=== PATIENT | female | born 1945 | race Caucasian/White ===

== ENCOUNTER → 2019-06-09 | Outpatient (CLI) | payer OTHER ==
[2019-06-09 20:32] LABS: Adenovirus F 40/41 Not Detected (NOT DETECT); Astrovirus Not Detected (NOT DETECT); Campylobacter Sp Not Detected (NOT DETECT); Cryptosporidium Not Detected (NOT DETECT); Cyclospora Cayetanensis Not Detected (NOT DETECT); E. Coli O157 Not Detected (NOT DETECT); Entamoeba Histolytica Not Detected (NOT DETECT); Enteroaggregative E. coli-EAEC Not Detected (NOT DETECT); Enteropathogenic E. coli-EPEC Not Detected (NOT DETECT); Enterotoxigenic E. coli-ETEC Not Detected (NOT DETECT); Giardia Lamblia Not Detected (NOT DETECT); Norovirus GI/GII Not Detected (NOT DETECT); Plesiomonas Shigelloides Not Detected (NOT DETECT); Rotavirus A Not Detected (NOT DETECT); Salmonella Sp Not Detected (NOT DETECT); Sapovirus Not Detected (NOT DETECT); Shiga Toxin-prod E. coli-STEC Not Detected (NOT DETECT); Shigella/Enteroin E. coli-EIEC Not Detected (NOT DETECT); Vibrio Cholerae Not Detected (NOT DETECT); Vibrio Sp Not Detected (NOT DETECT); Yersinia Enterocolitica Not Detected (NOT DETECT)
== END | disposition home or self-care (01) ==
LOC: LAB SHORT 15:14 → LAB 15:14
PROVIDERS: Family Medicine
DX: A09 Infectious gastroenteritis and colitis, unspecified (principal)
CPT/HCPCS: 0097U

== ENCOUNTER 2019-07-23 10:26 | Day surgery (SDC) | payer OTHER ==
[~2019-07-23] VITALS: Ht 162.6 cm; Wt 61.8 kg
[~2019-07-23 10:26] MED LIST: ANASTROZOLE PO; DYAZIDE 37.5-21 EACH; EUTHYROX88 MCG; FAMO20; Sudogest60 MG; ZYRTEC10 M2
== END 2019-07-23 12:50 | disposition home or self-care (01) ==
LOC: ORSCSDS 10:26
PROVIDERS: Surgery
PROC: 0DB68ZX Excision of Stomach, Via Natural or Artificial Opening Endoscopic, Diagnostic (ICD-10-PCS; principal; 2019-07-23 11:45)
PROC: 0DB48ZX Excision of Esophagogastric Junction, Via Natural or Artificial Opening Endoscopic, Diagnostic (ICD-10-PCS; principal; 2019-07-23 11:45)
DX: K44.9 Diaphragmatic hernia without obstruction or gangrene (principal); K22.70 Barrett's esophagus without dysplasia; R10.13 Epigastric pain; K29.70 Gastritis, unspecified, without bleeding; K80.20 Calculus of gallbladder without cholecystitis without obstruction; I10 Essential (primary) hypertension; E03.9 Hypothyroidism, unspecified; K21.9 Gastro-esophageal reflux disease without esophagitis; Z79.899 Other long term (current) drug therapy
CPT/HCPCS: J2704; J7120

== ENCOUNTER 2019-08-19 06:04 | Day surgery (SDC) | payer OTHER ==
[~2019-08-19] VITALS: Ht 162.6 cm; Wt 61.8 kg
[~2019-08-19 06:04] MED LIST changes: +ACET325 PO; +ANASTRAZOLE PO; -ANASTROZOLE PO; +ASCO500 PO; +CALCITRATE200 M1 PO; -DYAZIDE 37.5-21 EACH; +DYAZIDE 37.5-21 EACH PO; -EUTHYROX88 MCG; +EUTHYROX88 MCG PO; +FISH OIL 1,001000 M1 PO; +IBUP200 PO; +OMEP20ER PO; +Pepcid20 MG PO; -Sudogest60 MG; +Sudogest60 MG PO; +VITAMIN B125000 MC1 PO; +VITAMIN D350 MC2 PO; -ZYRTEC10 M2; +ZYRTEC10 M2 PO
--- NOTE | 2019-08-19 07:03 | NUR ---
History, Chart, Medications and Allergies reviewed before start of procedure. Lungs clear T/O to Auscultation. Patient confirms NPO status and agrees with scheduled surgery. Pre-Op teaching done. Pt verbalizes understanding. Patient reports completing Chlorhexadine shower X2 prior to admission to hospital.
--- NOTE | 2019-08-19 12:05 | NUR ---
pt arrived to room via stretcher following receiving report form ESTABLISHMENT GUIDE. pt a/o x4, pleasant/cooperative, slightly drowsy but answers questions appropriately. Post op vs commenced and stable. pt to remain strict NPO until 1700 this evening per MD orders. pt's in room. pt oriented to room, provided with IS and education for it's use/purpose.
--- NOTE | 2019-08-19 14:19 | NUR ---
ASSUMED CARE OF PATIENT. PT LYING IN RECLINER WITH EYES CLOSED. RESPIRATIONS EVEN AND UNLABORED
--- NOTE | 2019-08-19 18:06 | NUR ---
summary PT SUZE SIPS OF CLEAR LIQUIDS WITHOUT NAUSEA. PT REPORTS SHARP PAINS TO LEFT SHOULDER BLADE AND EPIGASTRIC AREA WHICH IS CONTROLLED TO TOLERABLE LEVEL WITH IV FENTANYL, PT AMBULATED WITH STANDBY ASSIST
--- NOTE | 2019-08-20 05:24 | NUR ---
SHIFT SUMMARY POD 1 LAP JACOBO AND HIATAL HERNIA REPAIR WITH ZOHREH FUNDOPLICATION [id number], VSS. PT REPORTS GAS PAIN PRESENT AND SOME ABDOMINAL PAIN. MEDICATED PER EMAR. PT REPORTS PAIN IMPROVING T/O SHIFT. TOLERATING PO WELL. REPORTS PASSING GAS. MEDICATED FOR NAUSEA X1. PT USING CALL LIGHT APPROPRIATLY. PT UP AND AMBULATING, VOIDING IN RESTROOM. PLAN TO ADVANCE TO FULL LIQUID THIS AM.
--- NOTE | 2019-08-20 08:05 | NUR ---
OOB TO CHAIR, TOLERATED WELL, PT HAVING FULL LIQUID BREAKFAST, DENIES ANY NAUSEA AT THIS TIME OR ANY NEED FOR PAIN MEDS AT THIS TIME, STATES TYLENOL HAS BEEN WORKING WELL FOR THE PAIN, CONT. TO MONITOR FOR ANY CHANGES, DC HOME ORDERED IF TOLERATED DIET WELL.
[2019-08-20] MEDS ORDERED: HYDR1TAB94 PO (08:51)
[2019-08-20] MEDS ORDERED: ONDA4ODT PO (08:52)
--- NOTE | 2019-08-20 11:10 | NUR ---
PT REPORTS TOLERATED FULL LIQUIDS WELL, WANTED TO GO HOME THIS AM, MEDICATED FOR PAIN AND NAUSEA X1, DC INSTRUCTIONS GIVEN TO PT AND , VERBALIZED UNDERSTANDING, PT DC'D HOME, IV DC'D, CATH INTACT.
== END 2019-08-20 11:14 | disposition home or self-care (01) ==
LOC: ORSCMMR 06:04 → ORD 07:30 → ORSCMMR 07:30 → SURS 11:53 → ORSCMMR 08-20 11:14
PROVIDERS: Surgery
PROC: 0FT44ZZ Resection of Gallbladder, Percutaneous Endoscopic Approach (ICD-10-PCS; principal; 2019-08-19 07:30)
PROC: 0DV44ZZ Restriction of Esophagogastric Junction, Percutaneous Endoscopic Approach (ICD-10-PCS; principal; 2019-08-19 07:30)
DX: K44.9 Diaphragmatic hernia without obstruction or gangrene (principal); K80.20 Calculus of gallbladder without cholecystitis without obstruction; K21.9 Gastro-esophageal reflux disease without esophagitis; Z01.812 Encounter for preprocedural laboratory examination; I10 Essential (primary) hypertension; E03.9 Hypothyroidism, unspecified; Z79.899 Other long term (current) drug therapy
CPT/HCPCS: 36415; 86850; 86900; 86901; 88304; A9270-GY; J0171; J0690; J1100; J1644; J2250; J2370; J2405; J2704; J2765; J3010; J7120

== ENCOUNTER 2021-03-29 09:24 | Emergency (ER) | payer MEDICARE, BC ==
[~2021-03-29] VITALS: Ht 162.6 cm; Wt 59.0 kg
[~2021-03-29 09:24] MED LIST changes: +HYDR1TAB94 PO; +ONDA4ODT PO
[2021-03-29 09:54] LABS: BASOPHILS ABSOLUTE AUTO 0.05 K/mm3 (0.00-0.23); BASOPHILS PERCENT AUTO 1 % (0-2); EOSINOPHILS ABSOLUTE AUTO 0.42 K/mm3 (0.00-0.68); EOSINOPHILS PERCENT AUTO 6 % (0-6); Hematocrit 41.6 % (33.0-51.0); Hemoglobin 14.1 g/dL (11.5-16.0); IMMATURE GRAN ABSOLUTE AUTO 0.01 K/mm3 (0.00-0.10); IMMATURE GRAN PERCENT AUTO 0 % (0-1); LYMPHOCYTES ABSOLUTE AUTO 2.02 K/mm3 (0.84-5.20); LYMPHOCYTES PERCENT AUTO 31 % (21-46); MONOCYTES ABSOLUTE AUTO 0.71 K/mm3 (0.16-1.47); MONOCYTES PERCENT AUTO 11 % (4-13); Mean Corpuscular HGB 30.3 pg (26.0-34.0); Mean Corpuscular HGB Conc 33.9 g/dL (31.5-36.5); Mean Corpuscular Volume 90 fL (80-100); Mean Platelet Volume 9.5 fL (9.1-12.4); NEUTROPHILS ABSOLUTE AUTO 3.37 K/mm3 (1.96-9.15); NEUTROPHILS PERCENT AUTO 51 % (41-73); Platelet Count 274 K/mm3 (150-400); RDW Coefficient Variation 13.1 % (11.7-14.2); RDW Standard Deviation 42.5 fL (35.1-46.3); Red Blood Cell Count 4.65 M/mm3 (3.80-5.20); White Blood Cell Count 6.58 K/mm3 (4.00-11.30)
[2021-03-29 10:23] LABS: Alanine Aminotransfer (ALT/SGP 31 U/L (12-78); Albumin, Blood 3.7 g/dL (3.4-5.0); Alk Phos 74 U/L (50-136); Anion Gap 6 mmol/L (6-16); Aspartate Aminotrans (AST/SGOT 22 U/L (12-37); Bilirubin, Total 0.5 mg/dL (0.1-1.0); Blood Urea Nitrogen 20 mg/dL (8-24); Bun/Creatinine Ratio 24.4 (12.0-20.0); CO2, Blood 25 mmol/L (21-32); Calcium, Blood 9.5 mg/dL (8.5-10.1); Chloride, Blood 107 mmol/L (98-108); Creatinine, Blood 0.82 mg/dL (0.40-1.00); Globulin, Blood 3.7 g/dL (2.2-4.0); Glomerular Filtration Rate >60 (60-); Glucose, Blood 129 mg/dL (70-99); Potassium, Blood 3.6 mmol/L (3.5-5.5); Sodium, Blood 138 mmol/L (136-145); Total Protein, Blood 7.4 g/dL (6.4-8.2); Troponin I <0.015 ng/mL (0.000-0.040)
[2021-03-29] MEDS ORDERED: SYNTHROID125 MC1 PO (10:41)
[2021-03-29] MEDS ORDERED: NORCO 7.5-3251 EAC1 PO (10:42)
[2021-03-29 10:43] LABS: Source, Urine Clean Catch
[2021-03-29 11:00] LABS: Appearance, Urine Clear (Clear); Bilirubin, Urine Neg (Neg); Blood, Urine 1+ (Neg); Color, Urine Yellow (P-Yellow); Glucose Qualitative, Urine Neg (Neg); Ketones, Urine Neg (Neg); Leukocyte Esterase, Urine 1+ (Neg); Nitrite, Urine Neg (Neg); Protein, Urine Neg (Neg); Urobilinogen, Urine NORM (Normal)
[2021-03-29 11:01] LABS: Bacteria Rare /hpf; Red Blood Cells, Urine Rare /hpf (0-2); Squamous Epithelial Cells Rare /hpf (Few); White Blood Cells, Urine 0-2 /hpf (0-5)
== END 2021-03-29 12:04 | disposition home or self-care (01) ==
LOC: ER 09:24
PROVIDERS: Physician Assistant; Student in an Organized Health Care Education/Training Program
DX: R06.02 Shortness of breath (principal); R07.89 Other chest pain
CPT/HCPCS: 36415; 71046; 71260; 80053; 81001; 84484; 85025; 87086; 93005; 93010; 99285-25; J7030; Q9967

== ENCOUNTER → 2022-02-22 | Outpatient (CLI) | payer MEDICARE, BC ==
[~2022-02-22] MED LIST changes: +NORCO 7.5-3251 EAC1 PO; +SYNTHROID125 MC1 PO
[2022-02-22 09:28] LABS: Source, Urine Clean Catch
[2022-02-22 10:28] LABS: Appearance, Urine Clear (Clear); Bilirubin, Urine Neg (Neg); Blood, Urine Neg (Neg); Color, Urine Yellow (P-Yellow); Glucose Qualitative, Urine Neg (Neg); Ketones, Urine Neg (Neg); Leukocyte Esterase, Urine Neg (Neg); Nitrite, Urine Neg (Neg); Protein, Urine Neg (Neg); Specific Gravity, Urine 1.015 (1.003-1.022); Urobilinogen, Urine NORM (Normal); pH, Urine 6.5 (5.0-8.0)
== END | disposition home or self-care (01) ==
LOC: LAB SHORT 09:26 → LAB FUT 02-21 17:40
PROVIDERS: Family Medicine
DX: N39.0 Urinary tract infection, site not specified (principal)
CPT/HCPCS: 81003; 87077; 87086; 87186

== ENCOUNTER → 2024-03-09 | Outpatient (CLI) | payer MEDICARE, BC | LOC: LAB 17:09 → LAB SHORT 17:09 | DX: N39.0 Urinary tract infection, site not specified (principal) | CPT/HCPCS: 87077; 87086; 87186 ==

== ENCOUNTER 2024-06-24 09:00 | Day surgery (SDC) | payer MEDICARE, OTHER ==
[~2024-06-24] VITALS: Ht 162.6 cm; Wt 62.5 kg
[~2024-06-24 09:00] MED LIST changes: +Povidone-Iodine 450 DROP/30 ML Solution ONE; +Tetracaine HCl/Pf 0.5% Opth Soln 4 ml ONE; +Triamcinolone Inj Susp 40 MG / ML 1ML Vial ONE
[2024-06-24] MEDS ORDERED: Diazepam 10 MG Tab ONE (09:23)
--- NOTE | 2024-06-24 09:37 | NUR ---
06/24/24 0937 Arabella Jeffery PATIENT REPORTS ANXIETY LEVEL AT 3/10 PRIOR TO ADMINISTRATION OF VALIUM 10MG PO @ [id number]
[2024-06-24] MEDS ORDERED: MUPIROCIN2210 TP (09:42)
[2024-06-24] MEDS ORDERED: PROCTOSOL-HC28.3510 TP (09:42)
--- NOTE | 2024-06-24 10:24 | NUR ---
06/24/24 1024 Sanaz Peterson VITALS AT 1024 BP: 106/81 P: 58 O2: 98% 10 LITERS OF BLOW BY OXYGEN
[2024-06-24] MEDS ORDERED: Balanced Salt Epinephrine Irrigation Solution 500 mL IR ONE (10:27)
[2024-06-24] MEDS ORDERED: Moxifloxacin HCL 0.5 MG/0.1 ML 0.4MLSYR RIGHTEYE ONE (10:27)
[2024-06-24] MEDS ORDERED: Lidocaine HCl/Pf 1% 5 ML VIAL XX ONE (10:27)
[2024-06-24 10:46] VITALS: BP 124/75
== END 2024-06-24 11:03 | disposition home or self-care (01) ==
LOC: ORSCSDS 09:00
PROVIDERS: Ophthalmology
PROC: 08RJ3JZ Replacement of Right Lens with Synthetic Substitute, Percutaneous Approach (ICD-10-PCS; principal; 2024-06-24 10:30)
DX: H25.813 Combined forms of age-related cataract, bilateral (principal); K21.9 Gastro-esophageal reflux disease without esophagitis; I10 Essential (primary) hypertension; E03.9 Hypothyroidism, unspecified; Z79.899 Other long term (current) drug therapy
CPT/HCPCS: A9270; J2003; J3301; V2632

== ENCOUNTER 2024-07-01 07:36 | Day surgery (SDC) | payer MEDICARE, OTHER ==
[~2024-07-01] VITALS: Ht 162.6 cm; Wt 62.7 kg
[~2024-07-01 07:36] MED LIST changes: +Balanced Salt Epinephrine Irrigation Solution 500 mL IR SCH; +Diazepam 5 MG Tab PO PRN; +Diazepam 5 MG Tab PO SCH; +Lidocaine HCl/Pf 1% 5 ML VIAL XX SCH; +MUPIROCIN2210 TP; +Moxifloxacin HCL 0.5 MG/0.1 ML 0.4MLSYR LEFTEYE SCH; +Ondansetron 4 MG SoluTab MM PRN; +PHENYLEPHRINE\\TROPICAMIDE\\TETRACAINE OPHTHALMIC DILATING SOLN LEFTEYE PRN; +PROCTOSOL-HC28.3510 TP; +Povidone-Iodine 450 DROP/30 ML Solution LEFTEYE SCH; +Triamcinolone Inj Susp 40 MG / ML 1ML Vial INJ SCH
[2024-07-01] MEDS ORDERED: Diazepam 10 MG Tab ONE (08:02)
--- NOTE | 2024-07-01 08:17 | NUR ---
07/01/24 0817 Sophie Bravo 0814: ANXIETY "3 OR 4" OUT OF 10 16: 10 MG PO VALIUM GIVEN PER ORDERS
--- NOTE | 2024-07-01 09:04 | NUR ---
07/01/24 0904 Lurdes Valadez BP-124/84 P-59 SPO2-100% 10L BLOW BY 02
[2024-07-01 09:23] VITALS: BP 123/71
== END 2024-07-01 09:38 | disposition home or self-care (01) ==
LOC: ORSCSDS 07:36
PROVIDERS: Ophthalmology
PROC: 08RK3JZ Replacement of Left Lens with Synthetic Substitute, Percutaneous Approach (ICD-10-PCS; principal; 2024-07-01 09:00)
DX: H25.812 Combined forms of age-related cataract, left eye (principal); Z96.1 Presence of intraocular lens; H52.202 Unspecified astigmatism, left eye; K21.9 Gastro-esophageal reflux disease without esophagitis; I10 Essential (primary) hypertension; E03.9 Hypothyroidism, unspecified; H40.019 Open angle with borderline findings, low risk, unspecified eye; Z79.899 Other long term (current) drug therapy
CPT/HCPCS: 82947; A9270; J3301; V2632

== ENCOUNTER 2024-08-31 17:38 | Emergency (ER) | payer MEDICARE, OTHER ==
[~2024-08-31] VITALS: Ht 162.6 cm; Wt 63.0 kg
[~2024-08-31 17:38] MED LIST changes: -Balanced Salt Epinephrine Irrigation Solution 500 mL IR SCH; -Diazepam 5 MG Tab PO PRN; -Diazepam 5 MG Tab PO SCH; -Lidocaine HCl/Pf 1% 5 ML VIAL XX SCH; -Moxifloxacin HCL 0.5 MG/0.1 ML 0.4MLSYR LEFTEYE SCH; -Ondansetron 4 MG SoluTab MM PRN; -PHENYLEPHRINE\\TROPICAMIDE\\TETRACAINE OPHTHALMIC DILATING SOLN LEFTEYE PRN; -Povidone-Iodine 450 DROP/30 ML Solution LEFTEYE SCH; -Povidone-Iodine 450 DROP/30 ML Solution ONE; -Tetracaine HCl/Pf 0.5% Opth Soln 4 ml ONE; -Triamcinolone Inj Susp 40 MG / ML 1ML Vial INJ SCH; -Triamcinolone Inj Susp 40 MG / ML 1ML Vial ONE
[2024-08-31] MEDS ORDERED: Morphine Sulfate 4 MG/1 ML Injection IV ONE (17:50)
[2024-08-31] MEDS ORDERED: Ondansetron HCl 2 MG / ML 2ML Vial IV ONE (17:50)
[2024-08-31 18:21] LABS: BASOPHILS ABSOLUTE AUTO 0.05 K/mm3 (0.00-0.23); BASOPHILS PERCENT AUTO 0 % (0-2); EOSINOPHILS ABSOLUTE AUTO 0.16 K/mm3 (0.00-0.68); EOSINOPHILS PERCENT AUTO 1 % (0-6); Hematocrit 41.6 % (33.0-51.0); Hemoglobin 14.1 g/dL (11.5-16.0); IMMATURE GRAN ABSOLUTE AUTO 0.05 K/mm3 (0.00-0.10); IMMATURE GRAN PERCENT AUTO 0 % (0-1); LYMPHOCYTES ABSOLUTE AUTO 1.82 K/mm3 (0.84-5.20); LYMPHOCYTES PERCENT AUTO 14 % (21-46); MONOCYTES ABSOLUTE AUTO 1.12 K/mm3 (0.16-1.47); MONOCYTES PERCENT AUTO 9 % (4-13); Mean Corpuscular HGB 31.2 pg (26.0-34.0); Mean Corpuscular HGB Conc 33.9 g/dL (31.5-36.5); Mean Corpuscular Volume 92 fL (80-100); Mean Platelet Volume 9.3 fL (9.1-12.4); NEUTROPHILS ABSOLUTE AUTO 9.98 K/mm3 (1.96-9.15); NEUTROPHILS PERCENT AUTO 76 % (41-73); Platelet Count 285 K/mm3 (150-400); Red Blood Cell Count 4.52 M/mm3 (3.80-5.20); White Blood Cell Count 13.18 K/mm3 (4.00-11.30)
[2024-08-31 18:40] LABS: Albumin, Blood 3.8 g/dL (3.4-5.0); Albumin/Globulin Ratio 0.9 (0.8-1.8); Bilirubin, Total 0.8 mg/dL (0.1-1.0); Bun/Creatinine Ratio 18.9 (12.0-20.0); Calcium, Blood 9.7 mg/dL (8.5-10.1); Creatinine, Blood 0.95 mg/dL (0.40-1.00); Globulin, Blood 4.2 g/dL (2.2-4.0); Potassium, Blood 3.6 mmol/L (3.5-5.5)
[2024-08-31 21:08] LABS: Source, Urine Voided
[2024-08-31 21:13] LABS: Appearance, Urine Clear (Clear); Bilirubin, Urine Neg (Neg); Blood, Urine 1+ (Neg); Color, Urine Yellow (P-Yellow); Glucose Qualitative, Urine Neg (Neg); Ketones, Urine Neg (Neg); Leukocyte Esterase, Urine Neg (Neg); Nitrite, Urine Neg (Neg); Protein, Urine 1+ (Neg); Urobilinogen, Urine NORM (Normal)
[2024-08-31 21:29] LABS: Amorphous Light (0-Heavy); Bacteria Not Seen /hpf; Squamous Epithelial Cells Not Seen /hpf (Few); White Blood Cells, Urine Not Seen /hpf (0-5)
[2024-08-31 21:45] VITALS: BP 117/65
[2024-08-31] MEDS ORDERED: Flagyl500 MG PO (22:14)
== END 2024-08-31 22:26 | disposition home or self-care (01) ==
LOC: ER 17:38
PROVIDERS: Emergency Medicine
DX: K57.32 Diverticulitis of large intestine without perforation or abscess without bleeding (principal); E03.9 Hypothyroidism, unspecified; K59.00 Constipation, unspecified; Z88.0 Allergy status to penicillin; Z79.890 Hormone replacement therapy; Z79.899 Other long term (current) drug therapy; Z90.49 Acquired absence of other specified parts of digestive tract
CPT/HCPCS: 74022; 74177; 80053; 81001; 83690; 85025; 93005; 93010; 96374-59; 99284-25; J2405; Q9967